=== PATIENT | male | born 1985 | race Two or more races ===

== ENCOUNTER 2016-11-21 14:34 | Emergency (ER) | payer MEDICAID ==
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
--- NOTE | 2016-11-22 09:16 | Diagnostic Imaging Report ---
Left ankle (3 views) HISTORY: Pain, trauma No acute bony abnormalities seen at this time. Degenerative and chronic changes noted about the medial malleolus and anterior margin of the distal tibia. IMPRESSION: 1. No definite acute bony abnormalities. In the presence of recent trauma and persistent symptoms, a repeat radiograph in 5-7 days may be helpful for detection of a subtle or occult fracture.
--- NOTE | 2016-11-22 09:17 | Diagnostic Imaging Report ---
Thoracolumbar spine (3 views) HISTORY: Pain The exam of the thoracic spine is limited to the lower region. Degenerative changes are noted throughout the visualized thoracic spine throughout the lumbar spine with small spur formation seen about the endplates of all vertebrae. Minimal anterior wedging involves the body of T12. No definite acute abnormalities. IMPRESSION: 1. No acute abnormalities 2. Diffuse degenerative changes
== END 2016-11-21 16:36 | disposition home or self-care (01) ==
LOC: ER 14:34
DX: S93.402A Sprain of unspecified ligament of left ankle, initial encounter (principal); S39.012A Strain of muscle, fascia and tendon of lower back, initial encounter; V49.9XXA Car occupant (driver) (passenger) injured in unspecified traffic accident, initial encounter; Y93.89 Activity, other specified; Y92.488 Other paved roadways as the place of occurrence of the external cause; Y99.8 Other external cause status
CPT/HCPCS: 72080-TC; 73610-TC; Z7502

== ENCOUNTER 2017-10-02 22:17 | Emergency (ER) | payer SELFPAY ==
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
--- NOTE | 2017-10-03 11:02 | Diagnostic Imaging Report ---
CT scan lumbar spine HISTORY: Pain Total DLP equals 1660 CTDI equals 62.4 Axial sections were obtained through the lumbar spine. Additional sagittal and coronal reformatted images are provided. Alignment is normal. Degenerative spur formation noted about the endplates of L5-S1. Small bony density noted adjacent to the aorta. Superior margin of L5 consistent with chronic change. Schmorl node formation seen within the upper and lower endplates of T12. Spur formation extends of the anterior margins of the bodies of L1-2. No obvious extradural abnormalities. IMPRESSION: 1. No acute abnormalities 2. Degenerative changes
== END 2017-10-03 00:05 | disposition home or self-care (01) ==
LOC: ER 22:17
DX: M48.07 Spinal stenosis, lumbosacral region (principal); M54.5 Low back pain; Z90.49 Acquired absence of other specified parts of digestive tract
CPT/HCPCS: 99284; 96372; 72131; J1885; Z7502

== ENCOUNTER 2018-12-22 15:03 | Emergency (ER) | payer SELFPAY ==
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
== END 2018-12-22 15:55 | disposition home or self-care (01) ==
LOC: ER 15:03
DX: S06.0X0A Concussion without loss of consciousness, initial encounter (principal); S16.1XXA Strain of muscle, fascia and tendon at neck level, initial encounter; S39.012A Strain of muscle, fascia and tendon of lower back, initial encounter; Z90.49 Acquired absence of other specified parts of digestive tract; V43.63XA Car passenger injured in collision with pick-up truck in traffic accident, initial encounter; Y93.89 Activity, other specified; Y92.410 Unspecified street and highway as the place of occurrence of the external cause; Y99.8 Other external cause status